=== PATIENT | male | born 1965 | race Caucasian/White ===

== ENCOUNTER 2022-08-21 10:06 | Emergency (ER) | payer MEDICAID ==
[~2022-08-21] VITALS: Ht 170.2 cm; Wt 100.0 kg
[2022-08-21 10:45] VITALS: BP 142/88
[2022-08-21] MEDS ORDERED: IBUPROFEN 600MG TABLET PO ONE (10:45)
[2022-08-21] MEDS ORDERED: METHOCARBAMOL 500MG TABLET PO ONE (10:45)
[2022-08-21] MEDS ORDERED: IBUP-2028 MT (12:04)
== END 2022-08-21 12:20 | disposition home or self-care (01) ==
LOC: ER 10:06
DX: M25.551 Pain in right hip (principal); M25.561 Pain in right knee; I10 Essential (primary) hypertension; V23.49XA Other motorcycle driver injured in collision with car, pick-up truck or van in traffic accident, initial encounter; Y93.55 Activity, bike riding; Y92.89 Other specified places as the place of occurrence of the external cause; Y99.8 Other external cause status
CPT/HCPCS: 73502; 73552; 73560; 99284; Z7610